=== PATIENT | female | born 1975 | race Caucasian/White ===

== ENCOUNTER 2024-05-17 12:47 | Outpatient (CLI) | payer OTHER, SELFPAY ==
--- NOTE | 2024-05-17 13:00 | MR_ITS ---
[facility] [address] [address] Phone:?[phone] Fax:?[phone] Referring Physician Information: Elmer Baker M.D. [id number] [facility] ([facility] [address] Phone:?[phone] Fax:?[phone] Patient:Marquis Aly D.O.B:?1975 Sex:?Female Phone:?[phone] [facility] MRN:?[id number] Exam Date:?05/17/2024 EXAM: MRI EXAMINATION OF THE LEFT KNEE CLINICAL INFORMATION: Left knee pain. Evaluate osteoarthritis. Evaluate meniscal tear. TECHNICAL INFORMATION: Coronal PD and STIR. Axial PD and T2 fat saturation. Sagittal PD and PD fat saturation images acquired. No prior studies for comparison. INTERPRETATION: Bones: Mild subchondral edema signal involves the peripheral weight-bearing surface of the lateral femoral condyle. Subchondral edema signal cystic changes involving the patella. No occult fracture or AVN. No other abnormal bone marrow edema pattern is identified. Ligaments and tendons: The medial collateral ligament is intact, without acute sprain or tear. The iliotibial band, fibular collateral ligament, biceps femoris tendon and popliteus tendon all are intact. The anterior cruciate ligament is intact without acute sprain or tear. The posterior cruciate ligament is intact. Extensor Mechanism: The patellar and quadriceps tendons are intact. The medial and lateral retinacula are intact. Knee Joint: There is a moderately large knee joint effusion. There is a small popliteal cyst. There is no discrete loose body seen within the joint. Medial Compartment: There is no evidence for discrete medial meniscal tear. No displaced flap fragment or parameniscal cyst. There is no focal chondral defect. No other significant changes of chondromalacia. Lateral Compartment: There are grade 3 and 4 changes of chondromalacia along the mid to peripheral weight-bearing surface of the lateral femoral condyle. Additional grade 3 to IV chondromalacia along the central surface of the tibial plateau. There is complex tearing throughout the joint involving the anterior root insertion of the lateral meniscus. No displaced flap fragment or parameniscal cyst. Patellofemoral articulation: There are grade 3 and 4 changes of chondromalacia through the central midline patella and lateral facet. Grade IV chondromalacia involves the superior periphery of the lateral trochlear groove. CONCLUSION: 1. Complex tearing throughout the anterior horn lateral meniscus and involving the anterior root insertion. 2. 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 3. No medial meniscal tear. The cruciate ligaments are intact. 4. Patellofemoral chondromalacia includes broad grade III and IV involvement along the central midline patella and lateral facet. 5. Moderately large knee joint effusion. KES Electronically signed on 05/17/2024 2:32:00 PM by Angel Alvarado M.D.
== END 2024-05-17 12:48 | disposition home or self-care (01) ==
PROVIDERS: PCP Nurse Practitioner; Visit Provider Orthopaedic Surgery
DX: M25.562 Pain in left knee (principal); M17.12 Unilateral primary osteoarthritis, left knee; S83.272A Complex tear of lateral meniscus, current injury, left knee, initial encounter; M94.262 Chondromalacia, left knee; M22.42 Chondromalacia patellae, left knee; M25.462 Effusion, left knee
CPT/HCPCS: 73721

== ENCOUNTER 2024-07-24 11:15 | Outpatient (RCR) | payer OTHER, SELFPAY | END 2024-08-29 12:39 | disposition home or self-care (01) | PROVIDERS: PCP Nurse Practitioner; Visit Provider Orthopaedic Surgery | DX: M17.12 Unilateral primary osteoarthritis, left knee (principal); R26.9 Unspecified abnormalities of gait and mobility; R53.1 Weakness; Z51.89 Encounter for other specified aftercare | CPT/HCPCS: 97032; 97110; 97140; 97161 ==

== ENCOUNTER 2024-10-16 13:30 | Outpatient (CLI) | payer OTHER, SELFPAY | END 2024-10-16 13:31 | disposition home or self-care (01) | LOC: INJ CL 13:31 | PROVIDERS: PCP Nurse Practitioner; Visit Provider Family Medicine | DX: M17.12 Unilateral primary osteoarthritis, left knee (principal); M25.562 Pain in left knee | CPT/HCPCS: 64454 ==

== ENCOUNTER 2024-10-30 12:00 | Outpatient (CLI) | payer OTHER, SELFPAY | END 2024-10-30 12:01 | disposition home or self-care (01) | LOC: INJ CL 12:01 | PROVIDERS: PCP Nurse Practitioner; Visit Provider Family Medicine | DX: M17.12 Unilateral primary osteoarthritis, left knee (principal); M25.562 Pain in left knee; G89.29 Other chronic pain | CPT/HCPCS: 64624; J2250; J3010 ==

== ENCOUNTER 2024-12-14 08:06 | Outpatient (CLI) | payer OTHER, SELFPAY ==
--- NOTE | 2024-12-14 08:15 | CRLHL7_ITS ---
For Patients: As a result of the Century Cures Act, medical imaging exams and procedure reports are released immediately into your electronic medical record. You may view this report before your referring provider. If you have questions, please contact your health care provider. INDICATION: BILATERAL SCREENING MAMMOGRAM, ASYMPTOMATIC 49 Y/O FEMALE COMPARISON: 11/02/22, 10/27/21, 10/09/20 TECHNIQUE: CC and MLO views were obtained. These mammographic images have been obtained using full-field digital technique. These mammographic images were interpreted with the benefit of computer aided detection and tomosynthesis. BREAST COMPOSITION: There are scattered areas of fibroglandular density. FINDINGS: No suspicious findings. ASSESSMENT: BI-RADS 2 Benign RECOMMENDATION: Annual screening mammogram. A lay language report of this examination will be provided to the patient. Dictated by: Javon Alcala MD @ 12/24/2024 08:35:24 (Electronically Signed)
== END 2024-12-14 08:07 | disposition home or self-care (01) ==
LOC: MAMMO 08:07
PROVIDERS: PCP Family Medicine; Visit Provider Obstetrics & Gynecology
DX: Z12.31 Encounter for screening mammogram for malignant neoplasm of breast (principal); E78.5 Hyperlipidemia, unspecified; E66.09 Other obesity due to excess calories; Z13.29 Encounter for screening for other suspected endocrine disorder
CPT/HCPCS: 77063; 77067; 80061; 84443

== ENCOUNTER 2025-01-01 09:24 | Outpatient (CLI) | payer OTHER, SELFPAY ==
--- NOTE | 2025-01-01 10:47 | P.ANES_ITS ---
Anesthesia Charges Start Date/Time Anesthesia Start Date: 01/01/25 Anesthesia Start Time: 10:09 Stop Date/Time Anesthesia Stop Date: 01/01/25 Anesthesia Stop Time: 10:47 Coding CPT Codes CPT Codes: RADHA LWR INTST NDSC NOS - 84822 ([id number]) P2 - PATIENT W/MILD SYST DISEASE, QK - TECHNICAL IMPLEMENTATION LEAD 2-4 CNCRNT ANES PROC, QX - CLINICAL INFORMATICS DIRECTOR SVC W/ MD MED DIRECTION
--- NOTE | 2025-01-01 10:47 | W.ANESCHARGE ---
Anesthesia Charges Start Date/Time Anesthesia Start Date: 01/01/25 Anesthesia Start Time: 10:09 Stop Date/Time Anesthesia Stop Date: 01/01/25 Anesthesia Stop Time: 10:47 Coding CPT Codes CPT Codes: RADHA LWR INTST NDSC NOS - [id number] ([id number]) P2 - PATIENT W/MILD SYST DISEASE, QK - ROTARY DRILLER 2-4 CNCRNT ANES PROC, QX - TRANSFER AND LINE UP WORKER SVC W/ MD MED DIRECTION
--- NOTE | 2025-01-01 12:44 | P.ANES_ITS ---
Anesthesia Charges Start Date/Time Anesthesia Start Date: 01/01/25 Anesthesia Start Time: 10:09 Stop Date/Time Anesthesia Stop Date: 01/01/25 Anesthesia Stop Time: 10:47 Coding CPT Codes CPT Codes: RADHA LWR INTST NDSC NOS - [id number] ([id number]) P2 - PATIENT W/MILD SYST DISEASE, QK - BUSINESS APPLICATIONS DEVELOPER 2-4 CNCRNT ANES PROC, QX - HIGH SCHOOL PRINCIPAL SVC W/ MD MED DIRECTION
--- NOTE | 2025-01-01 12:44 | W.ANESCHARGE ---
Anesthesia Charges Start Date/Time Anesthesia Start Date: 01/01/25 Anesthesia Start Time: 10:09 Stop Date/Time Anesthesia Stop Date: 01/01/25 Anesthesia Stop Time: 10:47 Coding CPT Codes CPT Codes: RADHA LWR INTST NDSC NOS - [id number] ([id number]) P2 - PATIENT W/MILD SYST DISEASE, QK - RIDE OPERATOR 2-4 CNCRNT ANES PROC, QX - CIRCULAR SAWYER STONE SVC W/ MD MED DIRECTION
== END 2025-01-01 09:25 | disposition home or self-care (01) ==
LOC: OP CLINIC 09:24
PROVIDERS: PCP Family Medicine; Visit Provider Surgery
DX: Z12.11 Encounter for screening for malignant neoplasm of colon (principal); D12.3 Benign neoplasm of transverse colon
CPT/HCPCS: 00811; 00812; 45385; 88305; J2405; J2704

== ENCOUNTER 2025-04-18 11:24 | Outpatient (CLI) | payer OTHER, SELFPAY | END 2025-04-18 11:25 | disposition home or self-care (01) | PROVIDERS: PCP Family Medicine; Visit Provider Family Medicine | DX: Z01.818 Encounter for other preprocedural examination (principal); E66.09 Other obesity due to excess calories | CPT/HCPCS: 80048; 85025 ==